=== PATIENT | female | born 1980 | race Caucasian/White ===

== ENCOUNTER 2017-03-25 19:24 | Emergency (ER) | payer MEDICAID, OTHER ==
--- NOTE | 2017-03-25 19:58 | EDM.PDOC ---
ED HPI GENERAL MEDICAL PROBLEM - General Chief Complaint: Upper Extremity Injury/Pain Stated Complaint: Fall, left hand pain and swelling Time Seen by Provider: 03/25/17 19:28 Source of Information: Reports: Patient, Family, RN, RN Notes Reviewed History Limitations: Reports: No Limitations - History of Present Illness INITIAL COMMENTS - FREE TEXT/NARRATIVE: Patient presents to the ED at [facility] after she sustained a left hand injury about 4 hours ago. Patient states she was walking out of her garage, slipped and fell off the step, landing on her left hand. Patient denies any previous surgery to the left hand. Patient denies any previous left hand injuries or trauma. Patient complains of pain along the 5th metacarpal. Onset: Today Onset Date: 03/25/17 Onset Time: 16:00 Location: Reports: Upper Extremity, Left left hand Pain Score (Numeric/FACES): 7 - Related Data Allergies Allergy/AdvReac Type Severity Reaction Status Date / Time No Known Allergies Allergy Verified 03/25/17 20:04 Home Meds: Home Meds Sertraline HCl [Zoloft] 100 mg PO DAILY 05/20/16 [History] Fluticasone/Salmeterol [Advair Diskus 250-50] 2 puff INH DAILY 03/25/17 [History ] Zolpidem [Ambien] 5 mg PO BEDTIME 03/25/17 [History] diphenhydrAMINE HCl [Benadryl] 50 mg PO BEDTIME 03/25/17 [History] Past Medical History - Past Health History Medical/Surgical History: Denies Medical/Surgical History Gastrointestinal History: Reports: Cholelithiasis 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: Neurological History: Reports: Migraines - Past Surgical History Female Surgical History: Reports: Section Musculoskeletal Surgical History: Reports: Other (See Below) Social & Family History - Tobacco Use Smoking Status *Q: Current Every Day Smoker Years of Tobacco use: 18 Packs/Tins Daily: 0.5 - Alcohol Use Days Per Week of Alcohol Use: 0 - Recreational Drug Use Recreational Drug Use: No Review of Systems - Review of Systems Review Of Systems: See Below Constitutional: Denies: Chills, Fever, Weakness Respiratory: Denies: Shortness of Breath, Cough Cardiovascular: Denies: Chest Pain, Palpitations Musculoskeletal: Reports: Hand Pain (left hand injury) Skin: Reports: No Symptoms Neurological: Reports: No Symptoms. Denies: Headache, Numbness, Paresthesia, Tingling Trauma Exam - Physical Exam Exam: See Below Exam Limited By: No Limitations General Appearance: Reports: Alert, No Apparent Distress Head: Reports: Atraumatic, Normocephalic Respiratory Exam: Reports: No Respiratory Distress, Lungs Clear, Normal Breath Sounds Cardiovascular: Reports: Regular Rate, Rhythm Extremities: Bony-Point Tenderness, Pain with Movement, Tenderness, Other ( swelling dorsum of left hand) Neurologic: Reports: Alert, Oriented x 3 Skin: Reports: Normal Color, Warm/Dry - [place] Coma Score Best Eye Response ([place]): (4) Open Spontaneously Best Verbal Response ([place]): (5) Oriented Best Motor Response ([place]): (6) Obeys Commands [place] Total: 15 ED TRAUMA EXTREMITY PROCEDURES - Splinting Left 5th Digit Splint site: Left Hand Fifth Digit Pre-procedure NV status: normal Post-procedure NV status: normal Splint material: fiberglass Splint design: volar Applied & form fitted by: provider, nurse Provider post-splint application NV check: NV status normal, good position Complications: No Course - Vital Signs Last Recorded V/S: Last Vital Signs Temp 37.2 C 03/25/17 19:25 Pulse 84 03/25/17 19:25 Resp 16 03/25/17 19:25 BP 113/87 03/25/17 19:25 Pulse Ox 98 03/25/17 19:25 - Orders/Labs/Meds Orders: Active Orders 24 hr Category Date Time Status Hand Comp Min 3V Lt [CR] Stat Exams 03/25/17 19:54 Ordered - Radiology Interpretation Free Text/Narrative:: Nutrient canal versus nondisplaced fifth metacarpal shaft fracture See scanned report in EMR Departure - Departure Time of Disposition: 20:38 Disposition: Home, Self-Care 01 Condition: good Clinical Impression: Fracture, metacarpal shaft Qualifiers: Encounter type: initial encounter Metacarpal bone: fifth Fracture type: closed Fracture alignment: nondisplaced Laterality: left Qualified Code(s): S62.357A - Nondisplaced fracture of shaft of fifth metacarpal bone, left hand, initial encounter for closed fracture - Discharge Information Instructions: Metacarpal Fracture Referrals: Zabrina Quiros DO [Primary Care Provider] - Forms: ED Department Discharge Additional Instructions: 1. Stay well hydrated and rest 2. May alternate Tylenol/Advil as needed 3. Rest, elevate, ice several times a day 4. Make appointment to see your Primary this week for a follow up - Problem List Review Problem List Initiated/Reviewed/Updated: Yes - My Orders Last 24 Hours: My Active Orders 03/25/17 19:54 Hand Comp Min 3V Lt [CR] Stat - Assessment/Plan Last 24 Hours: My Active Orders 03/25/17 19:54 Hand Comp Min 3V Lt [CR] Stat
[2017-03-25 20:04] VITALS: BP 113/87
== END 2017-03-25 21:20 | disposition home or self-care (01) ==
LOC: VM.ED 19:24
DX: S62.357A Nondisplaced fracture of shaft of fifth metacarpal bone, left hand, initial encounter for closed fracture (principal); F17.210 Nicotine dependence, cigarettes, uncomplicated; G43.909 Migraine, unspecified, not intractable, without status migrainosus; Z79.899 Other long term (current) drug therapy; W01.0XXA Fall on same level from slipping, tripping and stumbling without subsequent striking against object, initial encounter
CPT/HCPCS: 29125; 73130-LT; 99283

== ENCOUNTER 2024-03-30 07:34 | Emergency (ER) | payer BC, MEDICAID ==
[2024-03-30] MEDS: Diphtheria,Pertussis(Acell),Tetanus Vaccine 0.5 ML Syringe IM ONE (07:53)
[2024-03-30] MEDS: Lidocaine 1% with EPINEPHrine 1:100,000 20 ML MDV INFILT SCH (07:54)
[2024-03-30 09:16] VITALS: BP 129/65; PULSE 83
== END 2024-03-30 08:47 | disposition home or self-care (01) ==
LOC: VM.ED 07:34
DX: S01.511A Laceration without foreign body of lip, initial encounter (principal); Z23 Encounter for immunization; Z79.899 Other long term (current) drug therapy; W54.1XXA Struck by dog, initial encounter
CPT/HCPCS: 12011; 90471; 90715; 99282; 99282-25; J3490